=== PATIENT | male | born 1965 | race Caucasian/White ===

== ENCOUNTER 2020-12-14 09:00 | Day surgery (SDC) | payer BC ==
[2020-12-10 09:26] LABS: Basophils # (auto) 0.1 10 ^3/uL (0-0.2); Basophils % (auto) 0.8 % (0.0-2.0); Eosinophils # (auto) 0.3 10 ^3/uL (0-0.8); Eosinophils % (auto) 3.1 % (0.0-7.0); Hematocrit 50.1 % (41.0-53.0); Hemoglobin 17.3 g/dL (13.5-17.5); Lymphocytes # (auto) 2.3 10 ^3/uL (0.4-5.4); Lymphocytes % (auto) 23.3 % (10.0-50.0); Mean Corpuscular Hemoglobin 31.8 pg (28.0-32.0); Mean Corpuscular Hgb Conc. 34.5 g/dL (32.0-36.0); Mean Corpuscular Volume 92.2 fL (80.0-100.0); Monocytes % (auto) 10.1 % (0.0-12.0); Neutrophils # (auto) 6.3 10 ^3/uL (1.6-8.6); Neutrophils % (auto) 62.7 % (37.0-80.0); Red Blood Cells 5.43 10^6/uL (4.5-5.90); White Blood Cell 10.1 10^3/uL (4.4-10.8)
[2020-12-10 09:38] LABS: INR 1.05 (0.9-1.15); Partial Thromboplastin Time 27.2 sec (23.0-31.2)
[2020-12-10 09:52] LABS: Potassium 3.9 mmol/L (3.5-5.1)
[2020-12-10 10:00] LABS: Albumin 3.9 g/dL (3.4-5.0); Bilirubin, Total 0.7 mg/dL (0.2-1.0); Calcium 8.6 mg/dL (8.5-10.1); Total Protein 6.9 g/dL (6.4-8.2)
[~2020-12-14] VITALS: Ht 180.3 cm; Wt 113.4 kg
[~2020-12-14 09:00] MED LIST: FURO20TA3 PO; LOSA25TA38 PO; METO-158 PO; SUMA100T15 PO
[2020-12-14] MEDS: diphenhdrAMINE HCL 50 MG/1 ML VL ONE ×2 (10:16→10:20)
[2020-12-14] MEDS: fentaNYL CITRATE 100 MCG/2 ML VL ONE ×3 (10:16→10:23)
[2020-12-14] MEDS: MIDAZOLAM HCL 5 MG/ML-1ML VIAL ONE ×4 (10:16→10:26)
[2020-12-14 11:17] VITALS: BP 111/76
== END 2020-12-14 11:45 | disposition home or self-care (01) ==
LOC: GI 09:00
PROVIDERS: ATTEND Internal Medicine Gastroenterology
DX: Z12.11 Encounter for screening for malignant neoplasm of colon (principal); D12.3 Benign neoplasm of transverse colon; K63.5 Polyp of colon; K57.30 Diverticulosis of large intestine without perforation or abscess without bleeding; K64.8 Other hemorrhoids; M62.89 Other specified disorders of muscle; I10 Essential (primary) hypertension; G43.909 Migraine, unspecified, not intractable, without status migrainosus; M19.90 Unspecified osteoarthritis, unspecified site; Z20.822 Contact with and (suspected) exposure to COVID-19; Z80.0 Family history of malignant neoplasm of digestive organs; Z79.899 Other long term (current) drug therapy; Z68.34 Body mass index [BMI] 34.0-34.9, adult
CPT/HCPCS: 36415; 45385; 80053; 85025; 85049; 85610; 85730; 88305; J1200; J2250; J3010; J7030; U0003; 99152; 99153

== ENCOUNTER 2023-12-28 23:29 | Emergency (ER) | payer BC ==
[~2023-12-28] VITALS: Ht 180.3 cm; Wt 123.3 kg
[~2023-12-28 23:29] MED LIST changes: +LOSA-533 PO; -LOSA25TA38 PO
[2023-12-29 02:25] VITALS: BP 159/83; PULSE 84; RESP 16; TEMP 98.1; O2SAT 96
== END 2023-12-29 02:27 | disposition home or self-care (01) ==
LOC: ER 23:29
DX: S90.02XA Contusion of left ankle, initial encounter (principal); E11.9 Type 2 diabetes mellitus without complications; I10 Essential (primary) hypertension; W54.0XXA Bitten by dog, initial encounter; Y93.89 Activity, other specified; Y92.89 Other specified places as the place of occurrence of the external cause; Y99.8 Other external cause status

== ENCOUNTER 2024-05-23 23:43 | Emergency (ER) | payer BC ==
[~2024-05-23] VITALS: Ht 180.3 cm; Wt 126.0 kg
--- NOTE | 2024-05-24 00:05 | ED.PDOC ---
GI ASSESSMENT HPI Comments 58-year-old male came to ER due to constipation. Patient states he has been constipated for the past 5 days, able only to passed very scanty stools. No blood noted. Took laxatives but offered no relief. Patient complaining of abdominal pain with nausea and constipation. No history of abdominal surgeries patient does have an intermittent history of constipation. Patient states he does not hydrate enough. Chief Complaint: Constipation Time Seen by MD: 00:05 Reviewed Notes: Nurses Notes Allergies: Coded Allergies: NO KNOWN ALLERGIES (Unverified , 12/10/20) Home Meds Reported Medications Furosemide (Furosemide) 20 Mg Tab, 20 MG PO DAILY for 30 Days, MG 12/10/20 Sumatriptan Succinate (Sumatriptan Succinate) 100 Mg Tab, 100 MG PO PRN, MG 12/10/20 Metoprolol Tartrate (Metoprolol Tartrate) 50 Mg Tab, 50 MG PO DAILY for 30 Days, MG 12/10/20 Losartan Potassium (Losartan Potassium) 25 Mg Tab, 25 MG PO DAILY for 30 Days, MG 12/10/20 Information Source: Patient Mode of Arrival: Ambulatory Timing: Days Duration: Since onset Prehospital treatment: None Quality: Aching Vomitus: None Stool: Impaction Pain Location: Diffuse Modifying Factors: Nothing Associated sign and symptoms: Nausea, Constipation, Abdominal Pain Past Medical History PAST MEDICAL HISTORY: DM, HTN Past Medical History (Other): Constipation Surgical History: Denies all surgeries Family History Family History: Reviewed,noncontributory to illness, No family hx of Cancer, No family hx of DM, No family hx of Heart oneyda, No family hx of HTN, No family hx ofKidney oneyda, No family hx of Liver oneyda, No family hx of Lung oneyda, No family hx of Stroke Social History Smoker: Non-Smoker Alcohol: Denies ETOH Use Drugs: Denies Drug Use Lives In: Home Constitutional: denies: chills, diaphoresis, fatigue, fever, malaise, sweats, weakness, others EENTM: denies: blurred vision, double vision, ear bleeding, ear discharge, ear drainage, ear pain, ear ringing, eye pain, eye redness, hearing loss, mouth pain, mouth swelling, nasal discharge, nose bleeding, nose congestion, nose pain, photophobia, tearing, throat pain, throat swelling, voice changes, others Respiratory: denies: cough, hemoptysis, orthopnea, SOB at rest, shortness of breath, SOB with excertion, stridor, wheezing, others Cardiovascular: denies: chest pain, dizzy spells, diaphoresis, Dyspnea on exertion, edema, irregular heart beat, left arm pain, lightheadedness, palpitations, PND, syncope, others Gastrointestinal: reports: abdominal pain, constipated, nausea; denies: abdomen distended, blood streaked bowels, diarrhea, dysphagia, difficulty swallowing, hematemesis, melena, poor appetite, poor fluid intake, rectal bleeding, rectal pain, vomiting, others Genitourinary: denies: burning, dysuria, flank pain, frequency, hematuria, incontinence, penile discharge, penile sore, pain, testicle pain, testicle swelling, urgency, others Neurological: denies: dizziness, fainting, headache, left sided numbness, left sided weakness, numbness, paresthesia, pre-existing deficit, right sided numbness, right sided weakness, seizure, speech problems, tingling, tremors, weakness, others Musculoskeletal: denies: back pain, gout, joint pain, joint swelling, muscle pain, muscle stiffness, neck pain, others Integumetry: denies: bruises, change in color, change in hair/nails, dryness, laceration, lesions, lumps, rash, wounds, others Allergic/Immunocompromised: denies: Difficulty Healing, Frequent Infections, Hives, Itching, others Hematologic/Lymphatic: denies: anemia, blood clots, easy bleeding, easy bruising, swollen glands, others Endocrine: denies: excessive hunger, excessive sweating, excessive thirst, excessive urination, flushing, intolerance to cold, intolerance to heat, unexplained weight gain, unexplained weight loss, others Psychiatric: denies: anxiety, bipolar disorder, depression, hopeless, panic disorder, schizophrenia, sleepless, suicidal, others Physical Exam General Appearance: Moderate Distress ([id number] distress due to constipation concerns.), Normal HEENT: Normal ENT Inspection, Pharynx Normal, TMs Normal Neck: Full Range of Motion, Non-Tender, Normal, Normal Inspection Respiratory: Chest Non-Tender, Lungs Clear, No Accessory Muscle Use, No Respiratory Distress, Normal Breath Sounds Cardiovascular: No Edema, No JVD, No Murmur, No Gallop, Normal Peripheral Pulses, Regular Rate/Rhythm Breast Exam: Deferred Gastrointestinal: No Pulsatile Mass, Normal Bowel Sounds, Soft, Tenderness (Diffuse periumbilical tenderness to palpation. No pulsatile masses. Abdomen was reasonably soft.) Genitalia: Deferred Pelvic: Deferred Rectal: Deferred Extremities: No calf tenderness, Normal capillary refill, Normal inspection, Normal range of motion, Non-tender, No pedal edema Musculoskeletal : Apperance: Normal Neurologic: Alert, No Motor Deficits, Normal Affect, Normal Mood, No Sensory Deficits Cerebellar Function: Normal Reflexes: Normal Skin: Dry, Normal Color, Warm Lymphatic: No Adenopathy Was a procedure done? Was a procedure done?: No GI differential Dx Differential Diagnosis: Bowel Obstruction, Constipation, Gastritis/PUD, Gastroenteritis, Mass X-Ray, Labs, Meds, VS Vital Signs Date Time Temp Pulse Resp B/P (MAP) Pulse Ox O2 Delivery O2 Flow Rate FiO2 05/24/24 00:09 97.9 79 18 154/97 (116) 96 X-Ray, Labs, Meds, VS Comment All studies performed the ED were evaluated by me personally. Imaging studies of the abdomen were unremarkable for any small-bowel obstruction or dramatic stool burden. Patient did have dispersed moderate stool burden. Patient will be given a dose of lactulose prior to discharge and has been advised to utilize lactulose until he passes copious stool and establishes a healthy bowel pattern. Time of 1ST Reevaluation: 01:40 Reevaluation 1ST: Improved Consultation: PCP Patient Education/Counseling: Diagnosis, Treatment Family Education/Counseling: Diagnosis, Treatment, No Family Present Departure 1 Departure Time of Disposition: 01:41 Impression: Primary Impression: Constipation Disposition: 01 HOME / SELF CARE / HOMELESS Condition: Stable Additional Instructions: Advise utilizing medication until copious stools past. Patient should utilize medication until he can establish a healthy bowel pattern. Patient should increase hydration and add fiber to his diet. e-Prescriptions Lactulose (Lactulose) 10 Gm/15 Ml Mariah 10 GM PO Q8HP PRN, #150 ML Prov: ARTURO MUNOZ PAC 05/24/24 Discharged With: Self, Friend Critical Care Note Critical Care Time?: No Stability Stability form required: No Heart Score Heart Score: Heart Score Response (Comments) Value History N/A 0 EKG N/A 0 Age N/A 0 Risk Factors N/A 0 Troponin N/A 0 Total 0 I personally scribed for ARTURO MUNOZ PAC ([email or web address]) on 05/24/24 at 00:05. Electronically submitted by Mohsen Carter ([facility]). ARTURO MUNOZ PAC May 24, 2024 00:05
--- NOTE | 2024-05-24 01:10 | DVH ---
INDICATION: Constipation TECHNIQUE: Multiple views of the abdomen were obtained. COMPARISON: None FINDINGS: Nonobstructivel bowel gas pattern. The lung bases are clear. The visualized osseous structures appear intact. IMPRESSION: 1. Nonobstructivel bowel gas pattern.
[2024-05-24] MEDS ORDERED: LACT10SO3 PO (01:42)
[2024-05-24 01:58] VITALS: BP 137/92; PULSE 73; RESP 18; TEMP 98.1; O2SAT 96
[2024-05-24] MEDS: LACTULOSE 20Gm/30ML SOLN PO ONE (01:58)
== END 2024-05-24 02:05 | disposition home or self-care (01) ==
LOC: ER 23:43
DX: K59.00 Constipation, unspecified (principal); I10 Essential (primary) hypertension; E11.9 Type 2 diabetes mellitus without complications; Z79.899 Other long term (current) drug therapy
CPT/HCPCS: 74018

== ENCOUNTER 2024-06-22 21:14 | Emergency (ER) | payer BC ==
[~2024-06-22] VITALS: Ht 180.3 cm; Wt 128.0 kg
[~2024-06-22 21:14] MED LIST changes: +LACT10SO3 PO
--- NOTE | 2024-06-22 21:57 | ED.PDOC ---
History of Present Illness HPI Comments 58 y/o M, with a Hx of DM and HTN, presents with c/o intermittent, RUQ abdominal pain, diffused abdominal distension, and nausea for the past 2x months, today. Patient endorses on having symptoms, intermittently, for the past 2x months that resolves on their own, with most recent onset taking place over the past 2x days. He comments on pain during most recent onset being at its worse and subsiding on its own, yesterday, and returning, again, today, after eating a meal, earlier. He describes his abdomen also on being "rock hard" and rates pain a 4/10 in severity and describes it as tight in quality. Patient reports no additional relevant or pertinent history, such as recent travel or spoiled food intake, with exception of still having bowel movements and passing gas, currently. At time of assessment, patient was noted to have an elevated blood pressure amidst endorsement of medication compliancy history and taking his losartan and metoprolol medications, today. He denies having any chest, pain, shortness of breath, vomiting, diarrhea, constipation, fever, chills, urinary symptoms, or other associated symptoms or modifiers at this time. Chief Complaint: Abdominal Pain Time Seen by MD: 21:35 Reviewed Notes: Nurses Notes, Medications, Allergies Allergies: Coded Allergies: NO KNOWN ALLERGIES (Unverified , 12/10/20) Home Meds Active Scripts Lactulose (Lactulose) 10 Gm/15 Ml Mariah, 10 GM PO Q8HP PRN, #150 ML Prov:ARTURO MUNOZ [place] PAC 05/24/24 Reported Medications Furosemide (Furosemide) 20 Mg Tab, 20 MG PO DAILY for 30 Days, MG 12/10/20 Sumatriptan Succinate (Sumatriptan Succinate) 100 Mg Tab, 100 MG PO PRN, MG 12/10/20 Metoprolol Tartrate (Metoprolol Tartrate) 50 Mg Tab, 50 MG PO DAILY for 30 Days, MG 12/10/20 Losartan Potassium (Losartan Potassium) 25 Mg Tab, 25 MG PO DAILY for 30 Days, MG 12/10/20 Information Source: Patient Mode of Arrival: Ambulatory Severity: Moderate Timing: Months Duration: Intermittent Prehospital treatment: None Review of Systems: REVIEW OF SYSTEMS: No fever, no chills, or fatigue HEENT: No sore throat, no earache, no congestion, no neck pain. Cardiac: No chest pain. No palpitations. Lungs: No shortness of breath, no cough. GI: RUQ abdominal pain, diffused abdominal distension, nausea, no vomiting, no d iarrhea, no constipation : No dysuria, frequency, or urgency. No hematuria. Musculoskeletal: No joint pain , no joint swelling, no extremity edema. Skin: No rash, no itching. Neuro: No headache, no dizziness, no weakness Vital Signs Vital Signs Date Time Temp Pulse Resp B/P (MAP) Pulse Ox O2 Delivery O2 Flow Rate FiO2 06/22/24 22:59 140/91 06/22/24 22:59 81 20 95 06/22/24 21:55 98.3 98.3 Physical Exam General: Awake, alert and oriented. No acute distress. Skin: Skin in warm, dry and intact. Appropriate color for ethnicity. Nailbeds pink with no cyanosis. HEENT: The head is normocephalic and atraumatic. Conjuctival ejection, bilaterally.Conjunctivae are clear without exudates or hemorrhage. Sclera is non-icteric. EOM are intact. No signs of nystagmus. Eyelids are normal in appearance without swelling or lesions. Oral mucosa is pink and moist Neck: The neck is supple with normal range of motion. No JVD. Cardiac: Heart rate and rhythm are normal. No murmurs, gallops, or rubs are auscultated. Respiratory: No signs of respiratory distress. Lung sounds are clear in all lobes bilaterally without rales, ronchi, or wheezes. Abdominal: Abdomen is soft, with RUQ tenderness and diffused abdominal distension that is firm but not rigid. Bowel sounds are present and normoactive in all four quadrants. Extremities: Upper and lower extremities are atraumatic in appearance without deformity or edema. Neurological: The patient is awake, alert and oriented to person, place, and time with normal speech. Speech is clear. There is no facial asymmetry. Psychiatric: Appropriate mood and affect. Good judgement and insight. No visual or auditory hallucinations. Past Medical History PAST MEDICAL HISTORY: DM, HTN Surgical History: Denies all surgeries Family History Family History: Reviewed,noncontributory to illness, No family hx of Cancer, No family hx of DM, No family hx of Heart oneyda, No family hx of HTN, No family hx ofKidney oneyda, No family hx of Liver oneyda, No family hx of Lung oneyda, No family hx of Stroke Social History Smoker: Non-Smoker Alcohol: Denies ETOH Use Drugs: Denies Drug Use Lives In: Home Was a procedure done? Was a procedure done?: No Differential Dx Considerations may include: HTN emergency, gastritis, gastroenteritis, cholelithiasis, cholecystitis, PUD, GERD, spoiled food, viral syndrome, bowel obstruction, acute abdomen X-Ray, Labs, Meds, VS Vital Signs Date Time Temp Pulse Resp B/P (MAP) Pulse Ox O2 Delivery O2 Flow Rate FiO2 06/22/24 22:59 140/91 06/22/24 22:59 81 20 140/91 (107) 95 06/22/24 21:59 157/103 06/22/24 21:55 98.3 85 20 157/103 (121) 95 98.3 06/22/24 21:29 97.9 92 18 180/115 (136) 97 Lab Test 06/22/24 22:45 06/22/24 21:38 Range/Units White Blood Count 13.8 H 4.4-10.8 10^3/uL Red Blood Count 6.01 H 4.5-5.90 10^6/uL Hemoglobin 18.8 H 13.5-17.5 g/dL Hematocrit 56.3 H 41.0-53.0 % Mean Corpuscular Volume 93.6 80.0-100.0 fL Mean Corpuscular Hemoglobin 31.2 28.0-32.0 pg Mean Corpuscular Hemoglobin Concent 33.4 32.0-36.0 g/dL Red Cell Distribution Width 14.4 H 11.8-14.3 % Platelet Count 190 140-450 10^3/uL Mean Platelet Volume 10.3 6.9-10.8 fL Neutrophils (%) (Auto) 64.8 37.0-80.0 % Lymphocytes (%) (Auto) 23.2 10.0-50.0 % Monocytes (%) (Auto) 8.5 0.0-12.0 % Eosinophils (%) (Auto) 2.7 0.0-7.0 % Basophils (%) (Auto) 0.8 0.0-2.0 % Neutrophils # (Auto) 8.9 H 1.6-8.6 10 ^3/uL Lymphocytes # (Auto) 3.2 0.4-5.4 10 ^3/uL Monocytes # (Auto) 1.2 0-1.3 10 ^3/uL Eosinophils # (Auto) 0.4 0-0.8 10 ^3/uL Basophils # (Auto) 0.1 0-0.2 10 ^3/uL Nucleated Red Blood Cells 0.1 % Sodium Level 139 136-145 mmol/L Potassium Level 4.2 3.5-5.1 mmol/L Chloride Level 109 H 98-107 mmol/L Carbon Dioxide Level 25 20-31 mmol/L Anion Gap 5 5-15 Blood Urea Nitrogen 21 9-23 mg/dL Creatinine 0.83 0.700-1.30 mg/dL Glomerular Filtration Rate Calc 102 >90 mL/min BUN/Creatinine Ratio 25.3 H 10.0-20.0 Serum Glucose 107 H 74-106 mg/dL Lactic Acid Level 0.9 0.4-2.0 mmol/L Calcium Level 9.6 8.7-10.4 mg/dL Total Bilirubin 0.6 0.2-1.0 mg/dL Aspartate Amino Transferase (AST) 62 H 13-40 U/L Alanine Aminotransferase (ALT) 147 H 7-40 U/L Alkaline Phosphatase 74 46-116 U/L Total Protein 7.0 5.7-8.2 g/dL Albumin 4.6 3.2-4.8 g/dL Lipase 39 12-53 U/L POC Glucose 107 H 70-106 mg/dl Current Medications Medications (Trade) Dose Ordered Sig/Chinyere Route Start Time Stop Time Status Last Admin Clonidine HCl (Catapres Tablet) 0.2 mg ONCE ONCE PO 06/22/24 22:00 06/22/24 22:01 DC 06/22/24 21:59 Time of 1ST Reevaluation: 22:05 Reevaluation 1ST: Unchanged Patient Education/Counseling: Diagnosis, Treatment, Need For Follow Up Family Education/Counseling: No Family Present Departure 1 Departure Time of Disposition: 00:21 Impression: Primary Impression: Abdominal pain Additional Impressions: Leukocytosis Hepatic steatosis Elevated blood pressure reading Disposition: 01 HOME / SELF CARE / HOMELESS Condition: Stable Additional Instructions: ED DISCHARGE INSTRUCTIONS Instructions: Please read all instructions provided in this packet carefully. Although you have been discharged from the Emergency Department, this does not mean that you have a "clean bill of health". No definitive diagnosis for your symptoms has been made today. It is possible that you are in the process of developing a serious illness. This is why you must return to the ED without fail if any new or worsening symptoms (especially if your symptoms include chest pain, trouble breathing, abdominal pain, fever, headache, confusion, trouble seeing, or trouble walking) It is also very important that you see a primary care doctor within the next 3-5 days to follow up on abnormal finding on today's tests include elevated white blood cell count, Your blood work showed elevated liver function tests today and your CAT scan showed that you have a fatty liver. If you are unable to get an appointment, return to the ED for re-evaluation. You had elevated blood pressure reading today. Untreated high blood pressure can have serious consequences. However, you need a follow-up appointment to recheck your blood pressure to determine whether or not you need treatment. Make an appointment with your primary care provider for this within the next week. Abdominal Pain: Care Instructions Overview Abdominal pain has many possible causes. Some aren't serious and get better on their own in a few days. Others need more testing and treatment. If your pain continues or gets worse, you need to be rechecked and may need more tests to find out what is wrong. You may need surgery to correct the problem. Don't ignore new symptoms, such as fever, nausea and vomiting, urination problems, pain that gets worse, and dizziness. These may be signs of a more serious problem. If you are not getting better, you may need more tests or treatment. The doctor has checked you carefully, but problems can develop later. If you notice any problems or new symptoms, get medical treatment right away. Follow-up care is a neal part of your treatment and safety. Be sure to make and go to all appointments, and call your doctor if you are having problems. It's also a good idea to know your test results and keep a list of the medicines you take. How can you care for yourself at home? Rest until you feel better. To prevent dehydration, drink plenty of fluids. Choose water and other clear liquids until you feel better. If you have kidney, heart, or liver disease and have to limit fluids, talk with your doctor before you increase the amount of fluids you drink. When you feel like eating, start with small amounts. Do not have alcohol, caffeine, or spicy, hot, or high-fat foods for a day or two. Avoid anti-inflammatory medicines such as aspirin, ibuprofen (Advil, Motrin), and naproxen (Aleve). These can cause stomach upset. Talk to your doctor if you take daily aspirin for another health problem. When should you call for help? Call 911 anytime you think you may need emergency care. For example, call if: You passed out (lost consciousness). You pass maroon or very bloody stools. You vomit blood or what looks like coffee grounds. You have severe belly pain. Call your doctor now or seek immediate medical care if: Your pain gets worse, especially if it becomes focused in one area of your belly. You have a new or higher fever. Your stools are black and look like tar, or they have streaks of blood. You have unexpected vaginal bleeding. You have symptoms of a urinary tract infection. These may include: Pain when you urinate. Urinating more often than usual. Blood in your urine. You are dizzy or lightheaded, or you feel like you may faint. Watch closely for changes in your health, and be sure to contact your doctor if: You are not getting better as expected. Credits for Abdominal Pain: Care Instructions Current as of: March 29, 2023 Author: qualifyorharman [employer], [employer] Clinical Review Board All [employer] education is reviewed by a team that includes physicians, nurses, advanced practitioners, registered dieticians, and other healthcare pr ofessionals. LIVER FUNCTION TESTS EDUCATION: What does it mean to have elevated liver enzymes? If you have high levels of liver enzymes in your blood, you have elevated liver enzymes. High liver enzyme levels may be temporary, or they may be a sign of a medical condition like hepatitis or liver disease. Certain medications can also cause elevated liver enzymes. What are liver enzymes? Liver enzymes are proteins that speed up chemical reactions in your body. These chemical reactions include producing bile and substances that help your blood clot, breaking down food and toxins, and fighting infection. Common liver enzymes include: Alkaline phosphatase (ALP). Alanine transaminase (ALT). Aspartate transaminase (AST). Gamma-glutamyl transferase (GGT). If your liver is injured, it releases enzymes into your bloodstream (most commonly ALT or AST). Why does a healthcare provider check liver enzymes? Your healthcare provider may check your liver enzyme levels with a liver function test (LFT) or liver panel. A liver function test is a type of blood test. Your provider may order an LFT during a regular checkup if youre at risk for liver injury or disease or if you have symptoms of liver damage. Possible Causes What causes elevated liver enzymes? Liver diseases, medical conditions, medications and infections can cause elevated liver enzymes. What are the risk factors for elevated liver enzymes? Factors that put you at risk for elevated liver enzymes include: Alcohol use. Certain medications, herbs and vitamin supplements. Diabetes. Family history of liver disease. Hepatitis or exposure to hepatitis. What are the symptoms of elevated liver enzymes? Most people with elevated liver enzymes dont have symptoms. If liver damage is the cause of elevated liver enzymes, you may have symptoms such as: Abdominal (stomach) pain. Dark urine (pee). Fatigue (feeling tired). Itching. Jaundice (yellowing of your skin or eyes). Light-colored stools (poop). Loss of appetite. Nausea and vomiting. Care and Treatment Elevated liver enzymes have a variety of causes, including liver disease and medication. Elevated liver enzymes may also be temporary. If your blood test shows high levels of liver enzymes, talk with your provider. Theyll work to figure out the cause. (From [facility]) Comments 58-year-old male with abdominal pain. CT scan shows hepatic steatosis, othe rwise no acute process. Patient appears to have a large amount of bowel gas. Discussed with patient abnormal lab findings including leukocytosis. Patient is afebrile. He is advised to follow up with his primary care provider for further evaluation. Patient well-appearing, nontoxic. Advised prompt follow-up with PCP, return to the ED with any new, worsening or concerning symptoms. --- I reviewed the following notes from the pt's past medical encounters: ED visit 05/2024 The following tests were ordered, and results were reviewed by me: (See diagnostic results section) The following test were independently interpreted by me: N/A Additional information was gathered from interviewing the following independent historians: (N/A) I reviewed and agreed with the following test results read by other providers: N/A I discussed treatments and results with medical personnel and: N/A Decision regarding hospitalization or escalation of hospital level of care: Risks and benefits of admission for further treatment of patient's condition was considered however due to patient's stable condition patient will be discharged to follow up closely or return to care for worsening of condition or inability to follow up. Critical Care Note Critical Care Time?: No Stability Stability form required: No Heart Score Heart Score: Heart Score Response (Comments) Value History N/A 0 EKG N/A 0 Age N/A 0 Risk Factors N/A 0 Troponin N/A 0 Total 0 I personally scribed for GIULIANO CAMPBELL MD ([email or web address]) on 06/22/24 at 21:57. Electronically submitted by Omari Oreilly ([email or web address]). GIULIANO CAMPBELL MD Jun 22, 2024 21:57
[2024-06-22] MEDS: cloNIDine HCL 0.1 MG TAB PO ONE (21:59)
[2024-06-22] MEDS: IOHEXOL 300 MG/ML 100ML BOTTLE IJ ONE (22:17)
[2024-06-22 23:00] LABS: Basophils # (auto) 0.1 10 ^3/uL (0-0.2); Mean Corpuscular Hemoglobin 31.2 pg (28.0-32.0); Monocytes # (auto) 1.2 10 ^3/uL (0-1.3); Neutrophils # (auto) 8.9 10 ^3/uL (1.6-8.6); Nucleated Red Blood Cells % 0.1 %
[2024-06-22 23:02] LABS: Basophils % (auto) 0.8 % (0.0-2.0); Eosinophils # (auto) 0.4 10 ^3/uL (0-0.8); Eosinophils % (auto) 2.7 % (0.0-7.0); Hemoglobin 18.8 g/dL (13.5-17.5); Lymphocytes # (auto) 3.2 10 ^3/uL (0.4-5.4); Lymphocytes % (auto) 23.2 % (10.0-50.0); Mean Corpuscular Hgb Conc. 33.4 g/dL (32.0-36.0); Mean Corpuscular Volume 93.6 fL (80.0-100.0); Monocytes % (auto) 8.5 % (0.0-12.0); Neutrophils % (auto) 64.8 % (37.0-80.0); Platelet Count (auto) 190 10^3/uL (140-450); Red Blood Cells 6.01 10^6/uL (4.5-5.90); Red Cell Distribution Width 14.4 % (11.8-14.3); White Blood Cell 13.8 10^3/uL (4.4-10.8)
[2024-06-22 23:09] LABS: Hematocrit 56.3 % (41.0-53.0)
[2024-06-22 23:22] LABS: Albumin 4.6 g/dL (3.2-4.8); Alkaline Phosphatase 74 U/L (46-116); Anion Gap 5 (5-15); BUN/Creatinine Ratio 25.3 (10.0-20.0); Blood Urea Nitrogen 21 mg/dL (9-23); Calcium 9.6 mg/dL (8.7-10.4); Carbon Dioxide 25 mmol/L (20-31); Lipase 39 U/L (12-53); Potassium 4.2 mmol/L (3.5-5.1); Sodium 139 mmol/L (136-145)
[2024-06-22 23:23] LABS: Alanine Aminotransferase 147 U/L (7-40); Aspartate Aminotransferase 62 U/L (13-40); Bilirubin, Total 0.6 mg/dL (0.2-1.0); Chloride 109 mmol/L (98-107); Glucose 107 mg/dL (74-106)
--- NOTE | 2024-06-23 00:02 | DVH ---
Exam: CT CT AB PEL WITH IV CON ONLY History: Right upper quadrant pain, abdominal distention COMPARISON: None Technique: Multidetector spiral CT of the abdomen and pelvis was performed from lung bases to pubic s ymphysis. Intravenous contrast was administered during this examination. Portal venous imaging was obtained. Axial, coronal and sagittal multiplanar reformats were performed by the technologist on a separate workstation. Radiation Dose : 1. Abdomen/Pelvis: CTDIvol 25.5 mGy, DLP 1659 mGy*cm. CONTRAST: Type of contrast: Omni 300 Contrast injected: 100 ml Findings: Lung Bases: No acute or significant lung base finding. Normal heart size. No pleural or pericardial effusion. Liver: The liver is normal in size. No focal lesions. Normal hepatic vascular enhancement. Diffuse s teatosis. Gallbladder and Biliary Tree: Unremarkable Spleen: Unremarkable Pancreas: The pancreas is normal in appearance without focal lesions or abnormal enhancement. Adrenal Glands: Unremarkable Kidneys: No hydronephrosis. Bladder: Unremarkable Bowel: The stomach is grossly normal in appearance. Small bowel and colon are normal in caliber and d istribution. Normal appendix is visualized in the right lower quadrant without findings of appendici tis. Colonic diverticulosis without evidence of diverticulitis Ascites: Absent Lymphadenopathy: No mesenteric, retroperitoneal or periportal lymphadenopathy. Abdominal Wall and Mesentery: Unremarkable. Vasculature: The visualized abdominal aorta is normal in size and caliber. Abdominal and pelvic vess els demonstrate normal enhancement. Pelvic Organs: Unremarkable Musculoskeletal: No aggressive focal bony lesions, acute fractures or dislocation. IMPRESSION: 1. No acute abdominal or pelvic finding. 2. Colonic diverticulosis without evidence of diverticulitis. 3. Hepatic steatosis. Radiation optimization: All CT scans at this facility use at least one of these dose optimization shanice hniques: automated exposure control mA and/or kV adjustment per patient size (includes targeted exam s where dose is matched to clinical indication) or iterative reconstruction.
[2024-06-23 00:27] LABS: Urine Bacteria None Seen /hpf (None Seen)
[2024-06-23 01:02] LABS: Urine Blood TRACE /uL (Negative); Urine Clarity Clear (Clear); Urine Color Light-Yellow (Yellow); Urine Protein, UAD Negative (Negative); Urine Squamous Epithelial Cell FEW /hpf (<5); Urine Urobilinogen Normal (Negative); Urine WBC 2 /hpf (0 - 3); Urine pH 5.5 (5.0-9.0)
[2024-06-23 01:04] LABS: Urine Specific Gravity > 1.050 (1.001-1.035)
[2024-06-23] MEDS: SIMETHICONE 80 MG CHEWABLE TABLET PO ONE (01:10)
[2024-06-23 01:12] VITALS: BP 148/99; PULSE 84; RESP 19; TEMP 98.3; O2SAT 96
== END 2024-06-23 01:13 | disposition home or self-care (01) ==
LOC: ER 21:14
DX: R10.11 Right upper quadrant pain (principal); R14.0 Abdominal distension (gaseous); I10 Essential (primary) hypertension; E11.9 Type 2 diabetes mellitus without complications; D72.829 Elevated white blood cell count, unspecified; K57.30 Diverticulosis of large intestine without perforation or abscess without bleeding; K76.0 Fatty (change of) liver, not elsewhere classified; Z79.899 Other long term (current) drug therapy
CPT/HCPCS: 36415; 74177; 80053; 81001; 82962; 83605; 83690; 85025; 99285; Q9967

== ENCOUNTER 2024-08-01 08:37 | Day surgery (SDC) | payer BC ==
[2024-07-28 10:41] LABS: INR 1.03 (0.9-1.15); Prothrombin Time 10.9 sec (9.3-11.8)
[2024-07-28 10:53] LABS: Lymphocytes # (auto) 2.1 10 ^3/uL (0.4-5.4); Mean Corpuscular Volume 92.1 fL (80.0-100.0)
[2024-07-28 10:55] LABS: Basophils # (auto) 0 10 ^3/uL (0-0.2); Basophils % (auto) 0.3 % (0.0-2.0); Eosinophils # (auto) 0.6 10 ^3/uL (0-0.8); Eosinophils % (auto) 5.1 % (0.0-7.0); Hematocrit 55.2 % (41.0-53.0); Hemoglobin 18.4 g/dL (13.5-17.5); Lymphocytes % (auto) 19.1 % (10.0-50.0); Mean Corpuscular Hemoglobin 30.7 pg (28.0-32.0); Mean Corpuscular Hgb Conc. 33.4 g/dL (32.0-36.0); Monocytes % (auto) 9.5 % (0.0-12.0); Neutrophils # (auto) 7.2 10 ^3/uL (1.6-8.6); Nucleated Red Blood Cells % 0.1 %; Platelet Count (auto) 175 10^3/uL (140-450); Red Blood Cells 5.99 10^6/uL (4.5-5.90); Red Cell Distribution Width 14.2 % (11.8-14.3); White Blood Cell 10.9 10^3/uL (4.4-10.8)
[2024-07-28 12:21] LABS: Anion Gap 11 (5-15)
[2024-07-28 12:25] LABS: Calcium 10.3 mg/dL (8.7-10.4); Carbon Dioxide 25 mmol/L (20-31); Chloride 106 mmol/L (98-107); Potassium 4.3 mmol/L (3.5-5.1); Sodium 142 mmol/L (136-145)
[2024-07-28 12:27] LABS: BUN/Creatinine Ratio 20.8 (10.0-20.0)
[2024-07-28 12:36] LABS: Alanine Aminotransferase 156 U/L (7-40); Albumin 4.8 g/dL (3.2-4.8); Alkaline Phosphatase 75 U/L (46-116); Aspartate Aminotransferase 61 U/L (13-40); Bilirubin, Total 0.5 mg/dL (0.2-1.0); Blood Urea Nitrogen 20 mg/dL (9-23); Glucose 217 mg/dL (74-106); Total Protein 6.8 g/dL (5.7-8.2)
[~2024-08-01] VITALS: Ht 180.3 cm; Wt 117.9 kg
[~2024-08-01 08:37] MED LIST changes: +EMPA1TAB3 PO; -FURO20TA3 PO; -LACT10SO3 PO; -LOSA-533 PO; +LOSA100T25 PO; +OMEP-335 PO
[2024-08-01] MEDS ORDERED: SODIUM CHLORIDE LOCK 10 ML ONE (08:51)
[2024-08-01] MEDS: MIDAZOLAM HCL 5 MG/ML-1ML VIAL ONE (10:24)
[2024-08-01] MEDS: diphenhdrAMINE HCL 50 MG/1 ML VL ONE (10:24)
[2024-08-01] MEDS: fentaNYL CITRATE 100 MCG/2 ML VL ONE (10:24)
[2024-08-01 10:55] VITALS: PULSE 75; RESP 15; TEMP 98.9; O2SAT 95
--- NOTE | 2024-08-01 10:55 | DVHOP2 ---
Operative Report DATE OF OPERATION: 08/01/24 PROCEDURE: Colonoscopy with snare polypectomy. PREOPERATIVE INDICATION: The patient is a 58 -year-old male undergoing colonoscopy for surveillance with personal history of colon polyps and history of diverticulitis POSTOPERATIVE DIAGNOSES: 1. 2-3 mm benign-appearing transverse colon polyp was seen and removed completely via snare polypectomy 2. There was a 1-2 mm benign-appearing hyperplastic polyp that was removed by snare polypectomy but the specimen was cauterized 3. Moderate sigmoid diverticular disease with sigmoid muscular hypertrophy 4. Trace internal hemorrhoids otherwise normal examination up to the cecum PROCEDURE PERFORMED BY: Miky Banuelos M.D. SCOPE: Olympus videocolonoscope. ASA CLASS:2 PREOPERATIVE MEDICATIONS: Versed 5 mg, Fentanyl 100 mcg, Benadryl 501 mg PROCEDURE IN DETAIL: After obtaining an informed consent, the patient was placed on left lateral decubitus position. He was then sedated with the above medications. A rectal examination was performed that was normal. The colonoscope was then passed through the anus into the rectosigmoid and through the descending, transverse, and ascending colon up to the cecum with visualization of the appendiceal orifice, base of the cecum and the ileocecal valve. The colonoscope was then withdrawn. No masses or colitis was noted The patient had a 2-3 mm benign-appearing transverse colon polyp that was r emoved by snare polypectomy and the specimens were retrieved Another 2 mm benign-appearing hyperplastic type descending colon polyp was removed by snare polypectomy but the specimen was cauterized Patient had moderate sigmoid diverticular disease with sigmoid muscular hypertrophy On retroflexion the patient had trace internal hemorrhoids. The patient tolerated the procedure well without difficulty. WITHDRAWAL TIME: 9 minutes QUALITY OF THE PREP: [place] Bowel Prep score: 9. COMPLICATIONS : None SPECIMENS: Transverse colon polyp DISPOSITION: Stable D/C to home PLAN: 1. Repeat colonoscopy base on biopsy result likely in five years 2. Resume GI soft diet advance as tolerated 3. Increase fluid and fiber intake 4. Outpatient follow up with GI Services in 4-6 weeks to review results and discuss further management MIKY BANUELOS MD Aug 01, 2024 10:55
[2024-08-01 11:15] VITALS: BP 122/68; PULSE 73; RESP 13; O2SAT 95
== END 2024-08-01 11:25 | disposition home or self-care (01) ==
LOC: GI 08:37
PROVIDERS: ATTEND Internal Medicine Gastroenterology
DX: R19.4 Change in bowel habit (principal); D12.3 Benign neoplasm of transverse colon; K57.30 Diverticulosis of large intestine without perforation or abscess without bleeding; K64.8 Other hemorrhoids; K63.89 Other specified diseases of intestine; I10 Essential (primary) hypertension; E11.9 Type 2 diabetes mellitus without complications; Z79.899 Other long term (current) drug therapy; Z79.84 Long term (current) use of oral hypoglycemic drugs; Z86.0100 Personal history of colon polyps, unspecified
CPT/HCPCS: 36415; 45385; 80053; 82962; 85025; 85610; 85730; 88305; J1200; J2250; J3010; J7030; 99152